=== PATIENT | female | born 1975 | race Caucasian/White ===

== ENCOUNTER 2022-07-18 15:25 | Outpatient (CLI) | payer BC, SELFPAY ==
[2022-07-18 17:38] LABS: Basophils Absolute Auto 0.1 K/mm3 (0.0-0.1); Basophils Percent Auto 0.5 % (0.2-1.2); Eosinophils Absolute Auto 0.1 K/mm3 (0-0.3); Eosinophils Percent Auto 0.8 % (0-4.4); Hematocrit 36.2 % (37.0-47.0); Hemoglobin 12.2 g/dL (12.0-15.0); Immature Granulocyte Absolute 0.13 K/mm3 (0.00-0.031); Immature Granulocyte Percent A 1.3 % (0-0.5); Lymphocytes Absolute Auto 2.22 K/mm3 (0.9-3.2); Lymphocytes Percent Auto 22.7 % (18.3-44.2); Mean Corpuscular HGB Conc 33.7 g/dl (32-36); Mean Corpuscular Hemoglobin 30.3 pg (26-34); Mean Corpuscular Volume 89.8 fl (80-100); Mean Platelet Volume 9.8 fl (7.4-10.4); Monocytes Absolute Auto 0.9 K/mm3 (0.1-0.6); Monocytes Percent Auto 9.2 % (2.6-8.5); Neutrophils Absolute Auto 6.4 K/mm3 (1.3-6.7); Neutrophils Percent Auto 65.5 % (45.5-73.1); Platelet Count Result 514 k/mm3 (150-375); Red Blood Count 4.03 M/mm3 (4.2-5.4); Red Cell Distribution Width 12.7 % (11.5-14.5); White Blood Count 9.8 K/mm3 (4.5-10.0)
[2022-07-18 19:09] LABS: Alanine Aminotransferase 21 U/L (6-35); Albumin Level 4.3 g/dL (3.5-5.1); Alkaline Phosphatase 114 U/L (38-126); Amylase 66 U/L (30-110); Anion Gap 8 mmol/L (8-16); Aspartate Amino Transferase 44 U/L (14-36); Bilirubin,Total 0.3 mg/dL (0.2-1.3); Blood Urea Nitrogen 12 mg/dL (7-17); Calcium 8.6 mg/dL (8.4-10.2); Carbon Dioxide 29 mmol/L (22-30); Chloride 100 mmol/L (98-107); Cholesterol 211 mg/dL (0-200); Estimated Glomerular Filt Rate > 60; Glucose 96 mg/dL (65-110); HDL Direct 24 mg/dL; Lipase 42 U/L (23-300); Potassium 3.4 mmol/L (3.4-5.0); Sodium 137 mmol/L (137-145); Triglycerides 320 mg/dL (<150)
[2022-07-18 19:20] LABS: LDL Cholesterol Direct 95 mg/dL
[2022-07-18 21:21] LABS: Thyroid Stimulating Hormone Reflex 0.572 uIU/mL (0.465-4.68)
== END 2022-07-18 15:26 | disposition home or self-care (01) ==
LOC: ANHGOSHLAB 15:27
PROVIDERS: PCP Family Medicine; Visit Provider Nurse Practitioner
DX: Z13.6 Encounter for screening for cardiovascular disorders (principal); R10.9 Unspecified abdominal pain; Z13.220 Encounter for screening for lipoid disorders; R53.83 Other fatigue
CPT/HCPCS: 36415; 80053; 80061; 82150; 83690; 84443; 85025

== ENCOUNTER 2022-07-18 21:26 | Outpatient (NON) | payer BC, SELFPAY | END 2022-07-18 21:27 | disposition home or self-care (01) | PROVIDERS: PCP Family Medicine; Visit Provider Nurse Practitioner | DX: R10.9 Unspecified abdominal pain (principal) | CPT/HCPCS: 87086 ==

== ENCOUNTER 2022-09-20 08:14 | Outpatient (CLI) | payer BC, SELFPAY ==
--- NOTE | ~2022-09-20 | CT_ITS ---
EXAMINATION: CT abdomen pelvis wo/w con DATE: 09/20/2022 08:54 INDICATION: Gross hematuria. TECHNIQUE: Computed tomography (CT) of the abdomen and pelvis was performed without and with intraven ous contrast using a total of 130 mL Omnipaque-350 intravenous contrast with a double-bolus technique for simultaneous opacification of the renal parenchyma and renal collecting system. Automated exposu re control and iterative reconstruction technique were employed. The dose-length product was 513.05 m Gy-cm. COMPARISON: CT abdomen and pelvis 12/12/2017 FINDINGS: The visualized portions of the lung bases demonstrate mild atelectasis. There is mild emphysema. No p leural effusion. The heart size is normal. No pericardial effusion. The liver is normal. There are ch anges of cholecystectomy. Calcifications in the spleen are consistent with old granulomatous disease. The pancreas, adrenal glands, and right kidney are normal. There is a 2.0 cm cyst in left kidney. Th ere is no urolithiasis. The right ureter is not well opacified in its distal half, but is normal. The left ureter is not well opacified, but is normal. The bladder is not well distended. The left renal vein is compressed between the aorta and superior mesenteric artery with proximal dilatation, consist ent with nutcracker syndrome. There is diverticulosis of the colon without evidence of diverticulitis . There are no dilated loops of bowel. The appendix is normal. There are no pathologically enlarged l ymph nodes. There is no free intraperitoneal fluid. There is mild lumbar spondylosis. IMPRESSION: 1. 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 Reviewed, dictated and finalized at location A.
--- NOTE | ~2022-09-20 | XR_ITS ---
EXAMINATION: XR abdomen/kub 1V DATE: 09/20/2022 08:28 INDICATION: Gross hematuria. TECHNIQUE: A supine view of the abdomen was obtained. COMPARISON: CT abdomen and pelvis 09/20/2022 FINDINGS: There are no dilated loops of bowel. There are phleboliths in left pelvis. Surgical clips i n the right upper quadrant are likely from cholecystectomy. IMPRESSION: 1. No urolithiasis. Reviewed, dictated and finalized at location A. IMPRESSION: 1. No urolithiasis.
== END 2022-09-20 08:15 | disposition home or self-care (01) ==
LOC: ANHIMG 08:16
PROVIDERS: PCP Family Medicine; Visit Provider Nurse Practitioner Family
DX: R31.0 Gross hematuria (principal)
CPT/HCPCS: 74018; 74178; Q9967

== ENCOUNTER 2023-02-08 10:36 | Outpatient (CLI) | payer BC, SELFPAY ==
[2023-02-08 19:03] LABS: Basophils Percent Auto 0.5 % (0.2-1.2); Eosinophils Absolute Auto 0.1 K/mm3 (0-0.3); Eosinophils Percent Auto 1.7 % (0-4.4); Hematocrit 43.2 % (37.0-47.0); Immature Granulocyte Absolute 0.02 K/mm3 (0.00-0.031); Immature Granulocyte Percent A 0.2 % (0-0.5); Lymphocytes Absolute Auto 1.85 K/mm3 (0.9-3.2); Mean Corpuscular HGB Conc 32.4 g/dl (32-36); Mean Corpuscular Hemoglobin 30.8 pg (26-34); Mean Corpuscular Volume 94.9 fl (80-100); Mean Platelet Volume 10.8 fl (7.4-10.4); Monocytes Absolute Auto 0.6 K/mm3 (0.1-0.6); Monocytes Percent Auto 7.1 % (2.6-8.5); Neutrophils Absolute Auto 5.8 K/mm3 (1.3-6.7); Neutrophils Percent Auto 68.5 % (45.5-73.1); Platelet Count Result 291 k/mm3 (150-375); Red Blood Count 4.55 M/mm3 (4.2-5.4); Red Cell Distribution Width 12.5 % (11.5-14.5); White Blood Count 8.4 K/mm3 (4.5-10.0)
[2023-02-08 19:11] LABS: Alanine Aminotransferase 12 U/L (6-35); Albumin Level 4.5 g/dL (3.5-5.1); Alkaline Phosphatase 55 U/L (38-126); Anion Gap 5 mmol/L (8-16); Aspartate Amino Transferase 36 U/L (14-36); Bilirubin,Total 0.3 mg/dL (0.2-1.3); Blood Urea Nitrogen 11 mg/dL (7-17); Calcium 9.6 mg/dL (8.4-10.2); Carbon Dioxide 27 mmol/L (22-30); Chloride 105 mmol/L (98-107); Cholesterol 251 mg/dL (0-200); Estimated Glomerular Filt Rate > 60; Glucose 94 mg/dL (65-110); Potassium 4.6 mmol/L (3.4-5.0); Sodium 137 mmol/L (137-145); Triglycerides 136 mg/dL (<150)
[2023-02-08 19:20] LABS: LDL Cholesterol Direct 151 mg/dL
[2023-02-08 19:36] LABS: Erythrocyte Sedimentation Rate 17 mm/hr (0-20)
[2023-02-08 19:38] LABS: Hemoglobin A1C 5.3 % (<5.7)
[2023-02-08 19:39] LABS: HDL Direct 41 mg/dL
[2023-02-08 19:40] LABS: Thyroid Stimulating Hormone 0.576 uIU/mL (0.465-4.680)
[2023-02-08 19:59] LABS: Vitamin D 25 Hydroxy 44.2 ng/mL
== END 2023-02-08 10:37 | disposition home or self-care (01) ==
LOC: ANHGOSHLAB 10:38
PROVIDERS: PCP Family Medicine; Visit Provider Nurse Practitioner Family
DX: Z00.00 Encounter for general adult medical examination without abnormal findings (principal); Z13.89 Encounter for screening for other disorder; I10 Essential (primary) hypertension; Z13.1 Encounter for screening for diabetes mellitus; Z13.220 Encounter for screening for lipoid disorders; Z13.21 Encounter for screening for nutritional disorder; Z13.29 Encounter for screening for other suspected endocrine disorder
CPT/HCPCS: 36415; 80053; 80061; 82306; 83036; 84443; 85025; 85652

== ENCOUNTER 2023-02-08 10:56 | Outpatient (CLI) | payer BC, SELFPAY ==
--- NOTE | ~2023-02-08 | XR_ITS ---
Clinical Indication: Shortness of breath PA and lateral views of the chest: Comparison: None Findings: The lungs are clear, without evidence of focal consolidation or pleural effusion. Cardiome diastinal silhouette is within normal limits. Bones and soft tissues are unremarkable. Impression: Normal chest. Reviewed, dictated and finalized at [facility]. Impression: Normal chest.
== END 2023-02-08 10:57 ==
PROVIDERS: PCP Nurse Practitioner Family; Visit Provider Nurse Practitioner Family
DX: R06.02 Shortness of breath (principal)
CPT/HCPCS: 71046

== ENCOUNTER 2023-03-22 13:30 | Outpatient (CLI) | payer BC, SELFPAY ==
--- NOTE | 2023-03-22 13:33 | ECHO_ITS ---
Patient Info Name: Mckayla Ohara Age: 47 years : 1975 Gender: Female Ht: 66 in Wt: 125 lbs BSA: 1.62 m2 HR: 92 bpm BP: 108 / 80 mmHg Heart Rhythm: Sinus Rhythm Technical Quality: Fair Exam Date: 03/22/2023 1:37 PM Exam Location: [facility] Patient Status: Outpatient Admit Date: 03/22/2023 Staff Ordering Physician: Radha Wynne APRN Laminating Machine Operator Helper: Samantha Aguilera RDCS Attending Provider: Radha Wynne APRN Referring Physician: Sherrell BRONSON; Exam Type: CA echo doppler color flow Study Info Indications R06.02 - Shortness of breath Complete two-dimensional, color flow and Doppler transthoracic echocardiogram is performed. Summary 1. Complete two-dimensional, color flow and Doppler transthoracic echocardiogram is performed. 2. Left ventricular chamber dimension is normal. 3. Left ventricular systolic function is normal, estimated at 60-65%. 4. The left ventricular diastolic function is normal. 5. E/e' 7 is not elevated. 6. No pulmonary hypertension, estimated pulmonary arterial systolic pressure is 27 mmHg. Left Ventricle E/e' 7 is not elevated. Left ventricular chamber dimension is normal. Left ventricular systolic function is normal, estimated at 60-65%. The left ventricular diastolic function is normal. Right Ventricle Right ventricular systolic function is normal and with normal TAPSE 2.0 cm. Right ventricular chamber dimension is normal. Left Atria Left atrial chamber dimension is normal. Right Atria Right atrial chamber dimension is normal. Aortic Valve The aortic valve is trileaflet. There is no aortic valve stenosis. There is no aortic valve regurgitation. Pulmonic Valve There is no pulmonic regurgitation. Mitral Valve There is no mitral valve stenosis. There is no mitral valve regurgitation. Tricuspid Valve There is no tricuspid valve regurgitation. No pulmonary hypertension, estimated pulmonary arterial systolic pressure is 27 mmHg. Pericardium/Pleural There is no pericardial effusion. Inferior Vena Cava Normal inferior vena cava with >50% collapse upon inspiration consistent with normal right atrial pressure, 5 mmHg. Aorta The aortic root size at the sinus of Valsalva is normal. Left Ventricular Outflow Tract Name Value Normal LVOT 2D LVOT Diameter 2.0 cm LVOT Doppler LVOT Peak Gradient 4 mmHg LVOT Mean Gradient 2 mmHg LVOT VTI 19 cm LVOT VTI/AV VTI Ratio 0.7 LVOT Stroke Volume 63 ml LVOT CO 4.6 l/min LVOT CI 2.8 l/min/m2 Pulmonic Valve Name Value Normal PV Doppler PV Peak Gradient 3 mmHg Mitral Valve Name Value Normal
== END 2023-03-22 13:31 | disposition home or self-care (01) ==
LOC: ANHCARD 13:31
PROVIDERS: PCP Nurse Practitioner Family; Visit Provider Nurse Practitioner Family
DX: R06.02 Shortness of breath (principal); R07.9 Chest pain, unspecified
CPT/HCPCS: 93306

== ENCOUNTER 2023-09-13 08:54 | Emergency (ER) | payer BC, SELFPAY ==
--- NOTE | 2023-09-13 09:10 | ED.PSYCH ---
HPI - Psych General Chief Complaint: Psychiatric Symptoms <Cherri Weeks MD - Last Filed: 09/14/23 18:42> Stated Complaint: PSYCH <Cherri Weeks MD - Last Filed: 09/14/23 18:42> Time Seen by Provider: 09/13/23 09:08 <Cherri Weeks MD - Last Filed: 09/14/23 18:42> History of Present Illness HPI Narrative: Patient is a 47-year-old female with history of depression, possible history of bipolar per police department here with psychiatric symptoms. Patient notes that she has not been sleeping well since 's day. About 2 months ago she stopped taking her depression medications. Patient was brought into the emergency department after police were called. She had reportedly sent 476 text messages to her yesterday who is currently admitted to the hospital after surgery. In the stocks messages she reportedly stated that she wanted to ?blow up the world ?. She also had a police call yesterday after screening on her back porch and flashing her neighbors. Patient denies any suicidal or homicidal ideation. She states that she sent all of these because she hates everyone. She denies drug ingestion or alcohol use today. <Cherri Weeks MD - Last Filed: 09/14/23 18:42> Related Data Allergies/Adverse Reactions: Allergies Allergy/AdvReac Type Severity Reaction Status Date / Time No Known Allergies Allergy Verified 04/05/23 09:35 <Cherri Weeks MD - Last Filed: 09/14/23 18:42> Review of Systems Review of Systems: All systems reviewed & are unremarkable except as noted in HPI and below <Cherri Weeks MD - Last Filed: 09/14/23 18:42> PMFSH Past Medical History Medical History: Medical History (Updated 09/13/23 @ 18:45 by Cherri Weeks MD) Bleeding hemorrhoid Depression GERD (gastroesophageal reflux disease) Hematuria Joint pain <Cherri Weeks MD - Last Filed: 09/14/23 18:42> Surgical History Surgical History: Surgical History H/O: hysterectomy History of cholecystectomy <Cherri Weeks MD - Last Filed: 09/14/23 18:42> Social History Social History: Social History Smoking status: Current every day smoker Tobacco type: cigarettes Alcohol intake: never Substance use: current Substance use type: unknown Lack of Transportation: No Lack of Food: Never True Current Housing: I Have Housing Concerned About Future Housing: No Difficulty Paying Gas/Electric Bills: No Difficulty Paying for Meds: No Currently Unemployed: No Education: High School Diploma/GED Difficulty w/ Childcare or Family Care: No <Cherri Weeks MD - Last Filed: 09/14/23 18:42> Exam Narrative: GENERAL: Well-appearing, well-nourished, and in no acute distress. HEAD: Normocephalic, atraumatic. EYES: PERRLA and EOMI. ENT: Nares clear. Mucous membranes moist. NECK: Supple. CHEST: Clear to auscultation. No respiratory distress. HEART: Regular rate and rhythm. Normal peripheral pulses. ABDOMEN: Soft, nontender, nondistended. EXTREMITIES: Normal range of motion. No edema. SKIN: Warm, dry, no rash. NEURO: No focal deficits. Alert and oriented x3. PSYCH: Pressured tangential speech. Tearful. Paranoid. <Cherri Weeks MD - Last Filed: 09/14/23 18:42> Course Course Emergency Course: Chart review performed, patient here for psychiatric symptoms. Triage vitals within normal limits, she had a PCP visit over the phone in March 2023 for a follow-up on her depression. They noted she was on Lexapro at that time. Had increased her dose from 10 mg to 20 mg. Patient seen evaluated, appears to be acutely psychotic. Patient agreeable to oral medications. Psychiatric screening workup ordered. Patient compliant with oral medications, heme retic in the department and security was called to bedside. IM Haldol, Versed, Benadryl given to patient. Lab work and imaging review
[2023-09-13 09:12] VITALS: BP 159/70; PULSE 116; RESP 19; TEMP 36.4; O2SAT 94
[2023-09-13] MEDS: diphenhydrAMINE HCl INJ 50 MG/ML VIAL IM (09:46)
[2023-09-13] MEDS: MIDAZOLAM HCL (*CRX) 10 MG/2 ML VIAL 5 MG IV PUSH (09:47)
[2023-09-13] MEDS: HALOPERIDOL LACTATE 5 MG/ML VIAL IM (09:47)
--- NOTE | 2023-09-13 10:04 | PC.NURSE ---
Pt was walking around ED yelling about wanting medication. Pt was found walking into other pt rooms, pt was escorted back to her room by security. Orders for IM medications received by Dr. Weeks and were administered. Pt is now resting in her room.
[2023-09-13 10:33] LABS: Basophils Percent Auto 0.4 % (0.2-1.2); Eosinophils Percent Auto 0.2 % (0-4.4); Hematocrit 38.9 % (37.0-47.0); Immature Granulocyte Absolute 0.02 K/mm3 (0.00-0.031); Immature Granulocyte Percent A 0.4 % (0-0.5); Lymphocytes Absolute Auto 1.33 K/mm3 (0.9-3.2); Lymphocytes Percent Auto 29.9 % (18.3-44.2); Mean Corpuscular HGB Conc 33.4 g/dl (32-36); Mean Corpuscular Hemoglobin 29.7 pg (26-34); Mean Corpuscular Volume 88.8 fl (80-100); Mean Platelet Volume 10.7 fl (7.4-10.4); Monocytes Absolute Auto 0.3 K/mm3 (0.1-0.6); Monocytes Percent Auto 7.4 % (2.6-8.5); Neutrophils Absolute Auto 2.7 K/mm3 (1.3-6.7); Neutrophils Percent Auto 61.7 % (45.5-73.1); Platelet Count Result 206 k/mm3 (150-375); Red Blood Count 4.38 M/mm3 (4.2-5.4); Red Cell Distribution Width 12.8 % (11.5-14.5); White Blood Count 4.5 K/mm3 (4.5-10.0)
[2023-09-13 10:50] LABS: Acetaminophen < 10 ug/mL (10-30); Ethanol < 10 mg/dL (<10); Salicylate < 1.0 mg/dL (2-20)
[2023-09-13 10:51] LABS: Alanine Aminotransferase 14 U/L (6-35); Albumin Level 4.4 g/dL (3.5-5.1); Alkaline Phosphatase 66 U/L (38-126); Anion Gap 10 mmol/L (8-16); Aspartate Amino Transferase 51 U/L (14-36); Bilirubin,Total 0.6 mg/dL (0.2-1.3); Blood Urea Nitrogen 5 mg/dL (7-17); Calcium 9.4 mg/dL (8.4-10.2); Carbon Dioxide 23 mmol/L (22-30); Chloride 103 mmol/L (98-107); Estimated CRCL calculation 87 ml/min; Estimated Glomerular Filt Rate > 60; Glucose 91 mg/dL (65-110); Sodium 136 mmol/L (137-145)
[2023-09-13 11:10] LABS: Influenza A QL RT-PCR Negative (Negative); Influenza B QL RT-PCR Negative (Negative); RSV RNA, RT-PCR Negative (Negative); SARS-CoV-2 RNA PCR Negative (Negative)
--- NOTE | 2023-09-13 12:41 | PC.NURSE ---
Donnie, patient , called asking for update. Pt gave permission to give info for update.
--- NOTE | 2023-09-13 12:54 | PC.NURSE ---
Pt assisted to restroom for urine sample. Pt came out of restroom saying she went to the bathroom but forgot to go in the cup. Stated she will try again in a couple minutes.
[2023-09-13 13:01] LABS: Thyroid Stimulating Hormone 0.389 uIU/mL (0.465-4.680)
[2023-09-13 14:38] LABS: Appearance Urine Clear (Clear); Bacteria Urine 1+ /hpf; Bilirubin Urine Negative (Negative); Blood Urine 2+ (Negative); Color Urine Dark Yellow (Yellow); Glucose Urine UA Negative (Negative); Ketones Urine 4+ mg/dL (Negative); Leukocyte Esterase Ur Negative LEU/UL (Negative); Nitrate Urine Negative (Negative); Non Pathogenic Casts 0-2; Protein Urine Negative (Negative); Specific Grav Ur 1.018 (1.001-1.035); Squamous Epithelial Cell Urine Few /hpf (Few); pH Urine 5.5 (5.0-9.0)
[2023-09-13 14:50] LABS: Add Urine Microscopic? YES
[2023-09-13 14:51] LABS: Amphetamine Screen Urine Negative (Negative); Barbiturate Screen Urine Negative (Negative); Benzodiazepines Screen Urine Positive (Negative); Cannabinoid Screen Urine Positive (Negative); Cocaine Screen Urine Negative (Negative); Methadone Screen Urine Negative (Negative); Opiate Screen Urine Negative (Negative); Phencyclidine Screen Urine Negative (Negative)
[2023-09-13 15:06] VITALS: BP 106/67; PULSE 104; RESP 18; TEMP 36.7; O2SAT 98
--- NOTE | 2023-09-13 16:21 | PC.NURSE ---
Crisis representatives at bedside evaluating patient
[2023-09-13] MEDS: POTASSIUM BICARBONATE 25 MEQ TABEF 50 MEQ PO (17:03)
--- NOTE | 2023-09-13 17:53 | PC.NURSE ---
[facility] called to inform the patient is out of network and would have to self-pay, starting at $5,000
--- NOTE | 2023-09-13 20:33 | PC.NURSE ---
Pt does not have PIV established, discussed with provider. MD agreeable to increased water PO intake
--- NOTE | 2023-09-13 20:46 | PC.NURSE ---
Nilda with Crisis called for update on bed transfer status. She states [facility] is reviewing her file and should reach out soon.
[2023-09-13 22:32] LABS: Pregnancy On Board Control Positive; Urine Pregnancy Test Negative
--- NOTE | 2023-09-13 23:10 | PC.NURSE ---
Information faxed to [facility] per request
--- NOTE | 2023-09-13 23:20 | PC.NURSE ---
Antoinette at [facility] called to inform patient has been accepted at their facility, she is faxing over paperwork for patient to sign.
[2023-09-14 03:04] VITALS: BP 116/72; PULSE 88; RESP 16; TEMP 36.7; O2SAT 99
--- NOTE | 2023-09-14 04:29 | PC.NURSE ---
[facility] updated on patient ETA.
--- NOTE | 2023-09-14 07:06 | PC.NURSE ---
Patient has a safety generic breakfast tray ordered
[2023-09-14] MEDS: POTASSIUM BICARBONATE 25 MEQ TABEF 50 MEQ PO (08:15)
[2023-09-14 08:22] VITALS: BP 109/76; PULSE 110; RESP 20; O2SAT 96
[2023-09-14] MEDS: ESCITALOPRAM OXALATE 10 MG TABLET 20 MG PO (09:13)
== END 2023-09-14 10:10 ==
PROVIDERS: Emergency Medicine; Emergency Provider Student in an Organized Health Care Education/Training Program; PCP Family Medicine
DX: F29 Unspecified psychosis not due to a substance or known physiological condition (principal); Z20.822 Contact with and (suspected) exposure to COVID-19; F32.A Depression, unspecified; K21.9 Gastro-esophageal reflux disease without esophagitis
CPT/HCPCS: 36415; 80053; 80307; 81001; 81025; 84443; 85025; 87086; 87637; 96372; 96374; 99285; A9270; J1200; J1630; J2250